=== PATIENT | male | born 2005 | race American Indian/Alaskan Native ===

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

== ENCOUNTER 2024-09-04 14:33 | Emergency (ER) | payer BC ==
[2024-09-04] MEDS: Lactated Ringers 1,000 ML IV ONE (14:54)
[2024-09-04] MEDS: Ondansetron 4 MG/2 ML SDV IVPUSH ONE (14:54)
[2024-09-04 14:58] LABS: BASOPHILS PERCENT AUTO 0.1 % (0.0-1.0); HEMATOCRIT 45.6 % (40.0-54.0); HEMOGLOBIN 15.5 g/dL (14.0-18.0); MEAN CORPUSCULAR HEMOGLOBIN 29.9 pg (27.0-34.0); MEAN CORPUSCULAR VOLUME 87.9 fL (80-100); NEUTROPHILS PERCENT AUTO 94.9 % (42.2-75.2); PLATELET COUNT,PLT 280 10^3/uL (150-450); RED BLOOD CELL COUNT 5.19 10^6/uL (4.6-6.2); WHITE BLOOD CELL COUNT,WBC 16.2 10^3/uL (5.0-10.0)
[2024-09-04 15:13] LABS: A/G RATIO 1.2; ALBUMIN 4.3 g/dL (3.4-5.0); BILIRUBIN TOTAL 2.2 mg/dL (0.2-1.0); BUN/CREATININE RATIO 10.9 (No establ ref range); CALCIUM 9.4 mg/dL (8.5-10.1); CREATININE 1.01 mg/dL (0.70-1.30); EST CRCL DRUG DOSING (CG) 125.15 mL/min
[2024-09-04 15:22] VITALS: BP 150/78; PULSE 81
[2024-09-04] MEDS: Take Home: Ondansetron 4 MG Tab.DIS, 5 Tab Pack PO ONE (15:26)
== END 2024-09-04 15:32 | disposition home or self-care (01) ==
LOC: DL.ED 14:33
DX: R11.2 Nausea with vomiting, unspecified (principal)
CPT/HCPCS: 36415; 80053; 83690; 85025; 96374; 99282; 99284; J2405; J7120; Q0162